=== PATIENT | female | born 1950 | race Caucasian/White ===

== ENCOUNTER 2018-10-16 13:46 | Emergency (ER) | payer OTHER ==
[~2018-10-16] VITALS: Ht 154.9 cm; Wt 113.4 kg
[2018-10-16] MEDS ORDERED: VERAPAMIL ER120 MG (13:54)
[2018-10-16] MEDS ORDERED: PROAIR HFA8.5 GM (13:54)
[2018-10-16] MEDS ORDERED: METOPROLOL SUC100 MG (13:54)
[2018-10-16] MEDS ORDERED: CORTIZONE-10 1%28 GM (13:55)
== END 2018-10-16 17:14 | disposition home or self-care (01) ==
LOC: ER 13:46
DX: I73.89 Other specified peripheral vascular diseases (principal); R21 Rash and other nonspecific skin eruption